=== PATIENT | female | born 1965 | race Caucasian/White ===

== ENCOUNTER 2016-10-15 18:27 | Emergency (ER) | payer BC ==
[~2016-10-15] VITALS: Ht 154.9 cm; Wt 72.7 kg
[~2016-10-15 18:27] MED LIST: Aldactone PO; BENTYL20 MG PO; BUPROBAN150 MG PO; CEFTIN500 MG PO; CITALOPRAM HBR40 MG PO; COLCHICINE,COL0.6 MG PO; COLCRYS0.6 MG PO; DELTASONE1 MG PO; ENDOCET 5-3251 EACH PO; FENOFIBRATE145 M1 PO; FEOSOL325 MG PO; Feosol PO; Flagyl PO; HYDROCODON-ACE1 EAC8 PO; LOPRESSOR100 M1 PO; MAG-OX400 M1 PO; MOBIC15 MG PO; NEURONTIN100 MG PO; NORCO 7.5/321 TABLET; NORVASC10 MG PO; Neurontin PO; Norvasc PO; OXYCONTIN10 MG PO; PAXIL20 MG PO; PEPCID20 MG PO; PERCOCET 5/31 TABLET PO; POTASSIUM-9999 MG PO; PROTONIX40 MG PO; Pepcid PO; Protonix PO; TIZANIDINE HCL4 MG PO; TOPROL XL100 MG PO; TRAMADOL HCL50 MG PO; ULTRAM50 MG PO; VICODIN ES 7.51 EAC1 PO; ZANAFLEX4 M1 PO; ZOFRAN8 MG PO; ZYLOPRIM100 MG PO
[2016-10-15 19:20] LABS: HEMATOCRIT 32.1 % (36.0-46.0); MCH 28.8 PG (29.0-34.0); MCV 84.7 FL (83-99); MEAN PLAT.VOLUME 9.8 uM^3 (9.5-12.4); PLATELET COUNT 194 K/uL (156-360); RBC DIS.WIDTH-CV 15.9 % (11.8-14.6); RBC DIS.WIDTH-SD 47.9 % (39-53); RED BLOOD COUNT 3.79 M/uL (3.80-5.20); WHITE BLOOD COUNT 8.7 K/uL (4.1-10.2)
[2016-10-15 19:28] LABS: CHLORIDE 105 mEq/L (99-109); POTASSIUM 3.9 mEq/L (3.7-5.4); SODIUM 140 mEq/L (136-147)
[2016-10-15 19:31] LABS: GLUCOSE 138 mg/dL (70-99)
[2016-10-15 19:32] LABS: ANION GAP 14 MEQ/L (2-14)
[2016-10-15 19:33] LABS: TOTAL BILIRUBIN 0.9 mg/dL (0.0-1.0)
[2016-10-15 19:34] LABS: ALKALINE PHOSPHATASE 81 IU/L (3-129); GFR ESTIMATE (CALCULATED) > 59 mL/min/
[2016-10-15 19:35] LABS: UREA NITROGEN (BUN) 11 mg/dL (9-23)
[2016-10-15 19:44] LABS: QUANTITATIVE HCG < 4.0 MIU/ML
[2016-10-15 21:30] LABS: LIPASE 27 U/L (1.0-51.0)
[2016-10-16 00:30] LABS: ADD MIUA? NO; BILIRUBIN NEGATIVE; BLOOD NEGATIVE; COLOR YELLOW ((YELLOW)); GLUCOSE (STRIP) NEGATIVE; KETONES NEGATIVE; LEUKOCYTES NEGATIVE; NITRITE NEGATIVE; PROTEIN (STRIP) 30; UCUL ADDED? NO; UROBILINOGEN 0.2 MG/DL (0.2-1.0)
[2016-10-16] MEDS ORDERED: OMEPRAZOLE40 M1 PO (01:00)
[2016-10-16 01:24] VITALS: BP 126/78
== END 2016-10-16 01:27 | disposition home or self-care (01) ==
LOC: EME 18:27
PROVIDERS: Physician Assistant
DX: R10.13 Epigastric pain (principal); I10 Essential (primary) hypertension; K21.9 Gastro-esophageal reflux disease without esophagitis; Z87.891 Personal history of nicotine dependence
CPT/HCPCS: 71020; 74177; 80053; 81003; 83690; 84702; 85027; 99281; 99285; J1885; J2270; J2405; J3010; J7030

== ENCOUNTER 2017-04-25 16:00 | Inpatient (IN) | payer BC ==
[~2017-04-25] VITALS: Ht 154.9 cm; Wt 76.8 kg
[~2017-04-25 16:00] MED LIST changes: +OMEPRAZOLE40 M1 PO
[2017-04-25 16:06] LABS: BASE EXCESS -3.3 mEq/L (-3 to +3); BICARBONATE 23.9 mEq/L (22-26); COMMENTS - BLOOD GASES C+; DEVICE NRBM; FI02 100 %; METHEMOGLOBIN 0.8 % (0-1.5); O2 FLOW 15 L/MIN; PCO2 52 mm Hg (35-45); PO2 269 mm Hg (80-100); SITE RR; TOTAL RESP RATE 20 resp/min; pH 7.27 (7.35-7.45)
[2017-04-25 16:48] LABS: BASOPHIL (%) 0.1 % (0-1); EOSINOPHIL (%) 0.1 % (0-5); HEMATOCRIT 32.2 % (36.0-46.0); HEMOGLOBIN 10.2 G/DL (11.9-15.5); IMMATURE GRANULOCYTE (%) 0.9 % (0.0-0.7); LYMPHOCYTE (%) 6.6 % (15-42); LYMPHOCYTE COUNT 1.2 K/uL (1.0-2.8); MCH 30.4 PG (29.0-34.0); MCHC 31.7 G/DL (30.0-36.0); MCV 96.1 FL (83-99); MONOCYTE COUNT 1.6 K/uL (0-0.8); NEUTROPHIL (%) 83.3 % (45-76); NEUTROPHIL COUNT 14.8 K/uL (1.8-6.4); NRBC (%) 0.2 /100 WBC (0-0); PLATELET COUNT 327 K/uL (156-360); RBC DIS.WIDTH-CV 14.6 % (11.8-14.6); RBC DIS.WIDTH-SD 51.2 % (39-53); RED BLOOD COUNT 3.35 M/uL (3.80-5.20); WHITE BLOOD COUNT 17.8 K/uL (4.1-10.2)
[2017-04-25 16:53] LABS: INTER. NORMALIZED RATIO 1.2
[2017-04-25 16:55] LABS: ALBUMIN 3.7 g/dL (3.2-4.8); CHLORIDE 102 mEq/L (99-109); SODIUM 137 mEq/L (136-147)
[2017-04-25 16:56] LABS: PTT 28.4 SEC (25-37)
[2017-04-25 16:58] LABS: GLUCOSE 85 mg/dL (70-99); TOTAL PROTEIN 7.1 g/dL (6.4-8.3)
[2017-04-25 16:59] LABS: TOTAL BILIRUBIN 0.6 mg/dL (0.0-1.0)
[2017-04-25 17:01] LABS: ALKALINE PHOSPHATASE 91 IU/L (3-129); CREATININE 3.7 mg/dL (0.6-1.3); GFR ESTIMATE (CALCULATED) 14 mL/min/
[2017-04-25 17:02] LABS: UREA NITROGEN (BUN) 34 mg/dL (9-23)
[2017-04-25 17:03] LABS: AST (GOT) 47 IU/L (2-34); DIRECT BILIRUBIN 0.4 mg/dL (0.0-0.3)
[2017-04-25 17:04] LABS: ALT (GPT) 33 IU/L (3-49)
[2017-04-25 17:05] LABS: LIPASE 17 U/L (1.0-51.0)
[2017-04-25 17:11] LABS: TROP-I INTERPRETATION INDETERMINATE; TROPONIN-I 0.33 ng/mL (0.0-0.30)
[2017-04-25 17:20] LABS: POTASSIUM 7.3 mEq/L (3.7-5.4)
[2017-04-25 18:58] LABS: APPEARANCE CLOUDY ((CLEAR)); BILIRUBIN SMALL; BLOOD NEGATIVE; COLOR AMBER ((YELLOW)); GLUCOSE (STRIP) 50; KETONES 5; LEUKOCYTES NEGATIVE; NITRITE NEGATIVE; PROTEIN (STRIP) 30; SPECIFIC GRAVITY 1.017 (1.000-1.030)
[2017-04-25 19:18] LABS: EPITHELIAL CELLS 1+ /HPF; RED BLOOD CELLS 0-5 /HPF (0-5); WHITE BLOOD CELLS 0-5 /HPF (0-5)
[2017-04-25 19:19] LABS: AMORPHOUS URATES CRYSTALS 4+; BACTERIA 2+ /HPF; MUCUS NONE SEEN /LPF; UCUL ADDED? YES
[2017-04-25 21:09] LABS: BASE EXCESS -2.9 mEq/L (-3 to +3); BICARBONATE 24.3 mEq/L (22-26); CARBOXY HGB 2.8 % (0-5); METHEMOGLOBIN 0.6 % (0-1.5); PCO2 53 mm Hg (35-45); PO2 56 mm Hg (80-100)
[2017-04-25 21:10] LABS: COMMENTS - BLOOD GASES C+A+; DEVICE NC; O2 FLOW 3 L/MIN; SITE RR; TOTAL RESP RATE 20 resp/min; pH 7.27 (7.35-7.45)
[2017-04-25 21:45] VITALS: BP 130/83
[2017-04-25 21:53] LABS: CHLORIDE 110 mEq/L (99-109); SODIUM 141 mEq/L (136-147)
[2017-04-25 21:56] LABS: GLUCOSE 114 mg/dL (70-99); POTASSIUM 6.2 mEq/L (3.7-5.4)
[2017-04-25 21:59] LABS: CREATININE 3.1 mg/dL (0.6-1.3); GFR ESTIMATE (CALCULATED) 17 mL/min/
[2017-04-25 22:00] VITALS: BP 131/64
[2017-04-25 22:00] LABS: UREA NITROGEN (BUN) 35 mg/dL (9-23)
[2017-04-25 23:00] VITALS: BP 122/71
[2017-04-26] VITALS (24 sets, daily range): BP systolic 101–185; BP diastolic 58–97
[2017-04-26 05:23] LABS: HEMOGLOBIN 8.7 G/DL (11.9-15.5); MCHC 31.1 G/DL (30.0-36.0); MCV 96.6 FL (83-99); PLATELET COUNT 276 K/uL (156-360); RBC DIS.WIDTH-CV 14.7 % (11.8-14.6); RBC DIS.WIDTH-SD 52.2 % (39-53); WHITE BLOOD COUNT 13.3 K/uL (4.1-10.2)
[2017-04-26 05:46] LABS: GFR ESTIMATE (CALCULATED) 23 mL/min/; GLUCOSE 112 mg/dL (70-99); SODIUM 144 MEQ/L (136-147); UREA NITROGEN (BUN) 42 mg/dL (9-23)
[2017-04-26 05:47] LABS: ALBUMIN 3.5 G/DL (3.2-4.8); ALKALINE PHOSPHATASE 83 IU/L (3-129); ALT (GPT) 29 IU/L (3-49); AST (GOT) 41 IU/L (2-34); CHLORIDE 111 MEQ/L (99-109); TOTAL BILIRUBIN 0.5 MG/DL (0.0-1.0); TOTAL PROTEIN 5.9 G/DL (6.4-8.3)
[2017-04-26 05:54] LABS: CREATININE 2.4 MG/DL (0.6-1.3)
[2017-04-26 05:55] LABS: POTASSIUM 6.3 MEQ/L (3.7-5.4)
[2017-04-26 20:31] LABS: CHLORIDE 112 MEQ/L (99-109); CREATININE 1.3 MG/DL (0.6-1.3); GFR ESTIMATE (CALCULATED) 46 mL/min/; GLUCOSE 110 mg/dL (70-99); SODIUM 145 MEQ/L (136-147); UREA NITROGEN (BUN) 35 mg/dL (9-23)
[2017-04-26 20:32] LABS: POTASSIUM 4.5 MEQ/L (3.7-5.4)
[2017-04-27] VITALS (24 sets, daily range): BP systolic 116–185; BP diastolic 78–110
[2017-04-27 06:05] LABS: CHLORIDE 105 MEQ/L (99-109); CREATININE 1.2 MG/DL (0.6-1.3); GFR ESTIMATE (CALCULATED) 50 mL/min/; GLUCOSE 129 mg/dL (70-99); POTASSIUM 4.1 MEQ/L (3.7-5.4); SODIUM 142 MEQ/L (136-147); UREA NITROGEN (BUN) 29 mg/dL (9-23)
[2017-04-28] VITALS (18 sets, daily range): BP systolic 120–189; BP diastolic 71–109
[2017-04-28] MEDS ORDERED: AMLODIPINE BESY10 MG PO (02:47)
[2017-04-28] MEDS ORDERED: LOPRESSOR100 M1 PO (02:48)
[2017-04-28] MEDS ORDERED: CELEXA40 MG PO (02:50)
[2017-04-28] MEDS ORDERED: FENOFIBRATE145 M1 PO (02:50)
[2017-04-28] MEDS ORDERED: NEURONTIN300 MG PO (02:54)
[2017-04-28] MEDS ORDERED: ZANAFLEX6 MG PO (02:56)
[2017-04-28] MEDS ORDERED: COLCHICINE0.6 M1 PO (02:57)
[2017-04-28] MEDS ORDERED: ARYMO ER30 MG PO (02:58)
[2017-04-28 06:21] LABS: HEMATOCRIT 27.8 % (36.0-46.0); HEMOGLOBIN 9.1 G/DL (11.9-15.5); MCH 30.1 PG (29.0-34.0); MCHC 32.7 G/DL (30.0-36.0); PLATELET COUNT 278 K/uL (156-360); RBC DIS.WIDTH-CV 13.9 % (11.8-14.6); RED BLOOD COUNT 3.02 M/uL (3.80-5.20)
[2017-04-28 06:25] LABS: CHLORIDE 106 MEQ/L (99-109); CREATININE 0.9 MG/DL (0.6-1.3); GFR ESTIMATE (CALCULATED) > 59 mL/min/; GLUCOSE 106 mg/dL (70-99); MAGNESIUM 1.8 mg/dl (1.3-2.7); PHOSPHORUS 2.5 mg/dL (2.5-4.9); POTASSIUM 3.4 MEQ/L (3.7-5.4); SODIUM 145 MEQ/L (136-147); UREA NITROGEN (BUN) 28 mg/dL (9-23)
[2017-04-28 06:27] LABS: MCV 92.1 FL (83-99)
[2017-04-29] VITALS (12 sets, daily range): BP systolic 131–164; BP diastolic 66–94
[2017-04-29 05:32] LABS: BASOPHIL (%) 0.1 % (0-1); EOSINOPHIL (%) 0.4 % (0-5); HEMATOCRIT 26.2 % (36.0-46.0); HEMOGLOBIN 8.7 G/DL (11.9-15.5); IMMATURE GRANULOCYTE (%) 0.8 % (0.0-0.7); LYMPHOCYTE (%) 7.3 % (15-42); LYMPHOCYTE COUNT 0.8 K/uL (1.0-2.8); MCH 29.7 PG (29.0-34.0); MCHC 33.2 G/DL (30.0-36.0); MCV 89.4 FL (83-99); MONOCYTE (%) 8.3 % (3-12); MONOCYTE COUNT 0.9 K/uL (0-0.8); NEUTROPHIL (%) 83.1 % (45-76); NEUTROPHIL COUNT 9.3 K/uL (1.8-6.4); NRBC (%) 0.2 /100 WBC (0-0); PLATELET COUNT 232 K/uL (156-360); RBC DIS.WIDTH-CV 13.4 % (11.8-14.6); RBC DIS.WIDTH-SD 43.6 % (39-53); RED BLOOD COUNT 2.93 M/uL (3.80-5.20); WHITE BLOOD COUNT 11.2 K/uL (4.1-10.2)
[2017-04-29 06:14] LABS: CHLORIDE 104 MEQ/L (99-109); CREATININE 0.8 MG/DL (0.6-1.3); GFR ESTIMATE (CALCULATED) > 59 mL/min/; GLUCOSE 95 mg/dL (70-99); MAGNESIUM 1.5 mg/dl (1.3-2.7); PHOSPHORUS 1.6 mg/dL (2.5-4.9); POTASSIUM 3.1 MEQ/L (3.7-5.4); SODIUM 140 MEQ/L (136-147); UREA NITROGEN (BUN) 17 mg/dL (9-23)
[2017-04-30] VITALS (10 sets, daily range): BP systolic 123–163; BP diastolic 70–88
[2017-04-30 05:36] LABS: BASOPHIL (%) 0.2 % (0-1); EOSINOPHIL (%) 2.8 % (0-5); EOSINOPHIL COUNT 0.3 K/uL (0-0.3); HEMATOCRIT 24.3 % (36.0-46.0); HEMOGLOBIN 8.2 G/DL (11.9-15.5); IMMATURE GRANULOCYTE (%) 0.7 % (0.0-0.7); LYMPHOCYTE (%) 10.5 % (15-42); LYMPHOCYTE COUNT 0.9 K/uL (1.0-2.8); MCH 29.9 PG (29.0-34.0); MCHC 33.7 G/DL (30.0-36.0); MCV 88.7 FL (83-99); MONOCYTE (%) 9.7 % (3-12); MONOCYTE COUNT 0.9 K/uL (0-0.8); NEUTROPHIL (%) 76.1 % (45-76); NEUTROPHIL COUNT 6.8 K/uL (1.8-6.4); PLATELET COUNT 186 K/uL (156-360); RBC DIS.WIDTH-CV 13.5 % (11.8-14.6); RBC DIS.WIDTH-SD 43.6 % (39-53); RED BLOOD COUNT 2.74 M/uL (3.80-5.20)
[2017-04-30 06:05] LABS: CHLORIDE 104 MEQ/L (99-109); CREATININE 0.8 MG/DL (0.6-1.3); GFR ESTIMATE (CALCULATED) > 59 mL/min/; GLUCOSE 92 mg/dL (70-99); POTASSIUM 2.7 MEQ/L (3.7-5.4); SODIUM 138 MEQ/L (136-147); UREA NITROGEN (BUN) 10 mg/dL (9-23)
[2017-04-30] MEDS ORDERED: GABAPENTIN600 MG PO (13:37)
[2017-04-30] MEDS ORDERED: OMEPRAZOLE40 M1 PO (13:37)
[2017-04-30] MEDS ORDERED: VISTARIL25 MG PO (13:37)
[2017-04-30] MEDS ORDERED: ESCITALOPRAM OX20 MG PO (13:38)
[2017-04-30] MEDS ORDERED: BUSPAR15 MG PO (13:38)
[2017-04-30] MEDS ORDERED: PRAVACHOL20 MG PO (13:38)
[2017-04-30] MEDS ORDERED: DUEXIS 800-26.1 EACH PO (13:41)
[2017-04-30] MEDS ORDERED: OXAYDO7.5 MG PO (13:43)
[2017-05-01] VITALS (7 sets, daily range): BP systolic 15–186; BP diastolic 75–91
[2017-05-01 06:01] LABS: BASOPHIL (%) 0.2 % (0-1); EOSINOPHIL (%) 4.8 % (0-5); EOSINOPHIL COUNT 0.4 K/uL (0-0.3); HEMATOCRIT 25.1 % (36.0-46.0); HEMOGLOBIN 8.5 G/DL (11.9-15.5); IMMATURE GRANULOCYTE (%) 1.1 % (0.0-0.7); LYMPHOCYTE (%) 14.1 % (15-42); LYMPHOCYTE COUNT 1.2 K/uL (1.0-2.8); MCH 29.9 PG (29.0-34.0); MCHC 33.9 G/DL (30.0-36.0); MCV 88.4 FL (83-99); MONOCYTE (%) 9.7 % (3-12); MONOCYTE COUNT 0.8 K/uL (0-0.8); NEUTROPHIL (%) 70.1 % (45-76); PLATELET COUNT 195 K/uL (156-360); RBC DIS.WIDTH-CV 13.7 % (11.8-14.6); RBC DIS.WIDTH-SD 44.2 % (39-53); RED BLOOD COUNT 2.84 M/uL (3.80-5.20); WHITE BLOOD COUNT 8.5 K/uL (4.1-10.2)
[2017-05-01 06:31] LABS: CHLORIDE 106 MEQ/L (99-109); CREATININE 0.7 MG/DL (0.6-1.3); GFR ESTIMATE (CALCULATED) > 59 mL/min/; GLUCOSE 85 mg/dL (70-99); POTASSIUM 3.8 MEQ/L (3.7-5.4); SODIUM 139 MEQ/L (136-147); UREA NITROGEN (BUN) 7 mg/dL (9-23)
[2017-05-02 00:22] VITALS: BP 152/76
[2017-05-02 00:26] LABS: C DIFF TOXIN POSITIVE (NEGATIVE)
[2017-05-02 06:47] LABS: BASOPHIL (%) 0.3 % (0-1); EOSINOPHIL (%) 6.4 % (0-5); EOSINOPHIL COUNT 0.5 K/uL (0-0.3); HEMATOCRIT 25.2 % (36.0-46.0); HEMOGLOBIN 8.4 G/DL (11.9-15.5); IMMATURE GRANULOCYTE (%) 2.1 % (0.0-0.7); LYMPHOCYTE (%) 21.7 % (15-42); LYMPHOCYTE COUNT 1.6 K/uL (1.0-2.8); MCH 29.4 PG (29.0-34.0); MCHC 33.3 G/DL (30.0-36.0); MCV 88.1 FL (83-99); MONOCYTE (%) 10.2 % (3-12); MONOCYTE COUNT 0.7 K/uL (0-0.8); NEUTROPHIL (%) 59.3 % (45-76); NEUTROPHIL COUNT 4.2 K/uL (1.8-6.4); PLATELET COUNT 216 K/uL (156-360); RBC DIS.WIDTH-CV 13.7 % (11.8-14.6); RBC DIS.WIDTH-SD 43.9 % (39-53); RED BLOOD COUNT 2.86 M/uL (3.80-5.20); WHITE BLOOD COUNT 7.1 K/uL (4.1-10.2)
[2017-05-02 07:09] LABS: CHLORIDE 107 MEQ/L (99-109); CREATININE 0.7 MG/DL (0.6-1.3); GFR ESTIMATE (CALCULATED) > 59 mL/min/; GLUCOSE 87 mg/dL (70-99); POTASSIUM 3.5 MEQ/L (3.7-5.4); SODIUM 140 MEQ/L (136-147); UREA NITROGEN (BUN) 7 mg/dL (9-23)
[2017-05-02 07:14] VITALS: BP 179/86
[2017-05-02 15:03] VITALS: BP 170/79
[2017-05-03 00:12] VITALS: BP 161/68
[2017-05-03 07:28] LABS: CHLORIDE 107 MEQ/L (99-109); CREATININE 0.8 MG/DL (0.6-1.3); GFR ESTIMATE (CALCULATED) > 59 mL/min/; GLUCOSE 90 mg/dL (70-99); POTASSIUM 3.5 MEQ/L (3.7-5.4); SODIUM 141 MEQ/L (136-147); UREA NITROGEN (BUN) 9 mg/dL (9-23)
[2017-05-03 07:39] VITALS: BP 172/84
[2017-05-03] MEDS ORDERED: TYLENOL REGULA325 MG PO (12:32)
[2017-05-03] MEDS ORDERED: AZITHROMYCIN500 M1 PO (12:32)
[2017-05-03] MEDS ORDERED: METRONIDAZOLE500 MG PO (12:32)
[2017-05-03] MEDS ORDERED: REQUIP0.5 MG PO (12:35)
== END 2017-05-03 14:40 | disposition home or self-care (01) | DRG 871 ==
LOC: EME 16:00 → ENRESERV 19:54 → 4WEST 19:55 → EDOF 19:55 → ENRESERV 20:00 → 4WEST 21:47 → ENRESERV 05-01 14:06 → 5SOUTH 05-01 16:26
PROVIDERS: Emergency Medicine; Specialist; Student in an Organized Health Care Education/Training Program; Surgery
DX: A41.9 Sepsis, unspecified organism (principal); J69.0 Pneumonitis due to inhalation of food and vomit; J96.01 Acute respiratory failure with hypoxia; N17.9 Acute kidney failure, unspecified; F11.20 Opioid dependence, uncomplicated; E87.4 Mixed disorder of acid-base balance; K76.0 Fatty (change of) liver, not elsewhere classified; K21.9 Gastro-esophageal reflux disease without esophagitis; M10.9 Gout, unspecified; N20.0 Calculus of kidney; T40.2X1A Poisoning by other opioids, accidental (unintentional), initial encounter; G25.81 Restless legs syndrome; I10 Essential (primary) hypertension; E87.5 Hyperkalemia; F17.210 Nicotine dependence, cigarettes, uncomplicated; F43.22 Adjustment disorder with anxiety; G89.29 Other chronic pain; F32.9 Major depressive disorder, single episode, unspecified; J40 Bronchitis, not specified as acute or chronic; Z68.31 Body mass index [BMI] 31.0-31.9, adult; E66.9 Obesity, unspecified; D63.8 Anemia in other chronic diseases classified elsewhere; Z90.710 Acquired absence of both cervix and uterus; Z88.5 Allergy status to narcotic agent
CPT/HCPCS: 36600; 70450; 71010; 74176; 80048; 80048 91; 80053; 81003; 82248; 82330; 82550; 82803; 82948; 83605; 83690; 83735; 83880; 84100; 84132 91; 84484; 85025; 85027; 85610; 85730; 87040; 87086; 87493; 87502; 87641; 92610 GN; 93005; 94002; 94010; 94640; 94640 76; 94760; 94799; 95819; 99202; 99281; 99285; J0295; J0610; J0692; J1644; J1940; J1956; J2060; J2310; J2930; J3010; J3475; J3480; J7030; J7040; J7050; S0028